=== PATIENT | female | born 1990 | race Two or more races ===

== ENCOUNTER 2024-07-12 17:50 | Emergency (ER) | payer SELFPAY ==
[~2024-07-12] VITALS: Ht 167.6 cm; Wt 81.6 kg
[2024-07-12 17:58] VITALS: O2SAT 100
[2024-07-12 18:05] VITALS: BP 131/81; PULSE 110; RESP 26; TEMP 37.00296; O2SAT 99
== END 2024-07-12 18:59 | disposition home or self-care (01) ==
LOC: ER 17:50
DX: O26.893 Other specified pregnancy related conditions, third trimester (principal); S39.91XA Unspecified injury of abdomen, initial encounter; Z3A.34 34 weeks gestation of pregnancy; W10.9XXA Fall (on) (from) unspecified stairs and steps, initial encounter; Y93.89 Activity, other specified; Y92.89 Other specified places as the place of occurrence of the external cause; Y99.8 Other external cause status
CPT/HCPCS: 76805; 99284